=== PATIENT | male | born 1955 | race Asian ===

== ENCOUNTER 2022-10-08 09:20 | Emergency (ER) | payer OTHER ==
[~2022-10-08] VITALS: Ht 170.2 cm; Wt 95.4 kg
[2022-10-08] MEDS ORDERED: cloNIDine HCL 0.1 MG TAB PO ONE (10:00)
[2022-10-08] MEDS ORDERED: HYDROcodone-ACET 5/325MG TAB PO ONE (10:00)
[2022-10-08 10:18] VITALS: RESP 18; O2SAT 94
[2022-10-08 13:26] VITALS: BP 165/98; PULSE 74
[2022-10-08] MEDS ORDERED: CLON0.2T PO (14:04)
[2022-10-08] MEDS ORDERED: TRAM50TA2 PO (14:04)
== END 2022-10-08 14:43 | disposition home or self-care (01) ==
LOC: ER 09:20 → EDBD 09:20 → ER 14:42
DX: S42.032A Displaced fracture of lateral end of left clavicle, initial encounter for closed fracture (principal); I10 Essential (primary) hypertension; V49.9XXA Car occupant (driver) (passenger) injured in unspecified traffic accident, initial encounter; Y93.89 Activity, other specified; Y92.89 Other specified places as the place of occurrence of the external cause; Y99.8 Other external cause status
CPT/HCPCS: 71101; 73030; 73200

== ENCOUNTER 2022-10-19 08:06 | Emergency (ER) | payer OTHER ==
[~2022-10-19] VITALS: Ht 172.7 cm; Wt 88.0 kg
[~2022-10-19 08:06] MED LIST: CLON0.2T PO; TRAM50TA2 PO
[2022-10-19 08:54] LABS: Basophils # (auto) 0.1 10 ^3/uL (0-0.2); Basophils % (auto) 0.6 % (0.0-2.0); Eosinophils # (auto) 0.2 10 ^3/uL (0-0.8); Eosinophils % (auto) 1.6 % (0.0-7.0); Hematocrit 42.5 % (41.0-53.0); Hemoglobin 14.5 g/dL (13.5-17.5); Lymphocytes # (auto) 1.8 10 ^3/uL (0.4-5.4); Lymphocytes % (auto) 18.3 % (10.0-50.0); Mean Corpuscular Hemoglobin 29.2 pg (28.0-32.0); Mean Corpuscular Volume 85.7 fL (80.0-100.0); Monocytes # (auto) 0.6 10 ^3/uL (0-1.3); Monocytes % (auto) 6.6 % (0.0-12.0); Neutrophils # (auto) 7.1 10 ^3/uL (1.6-8.6); Neutrophils % (auto) 72.9 % (37.0-80.0); Nucleated Red Blood Cells % 0.1 %; Red Blood Cells 4.96 10^6/uL (4.5-5.90); White Blood Cell 9.7 10^3/uL (4.4-10.8)
[2022-10-19 09:36] LABS: Albumin 4.2 g/dL (3.4-5.0); Calcium 8.9 mg/dL (8.5-10.1)
[2022-10-19 09:40] LABS: BUN/Creatinine Ratio 16.2 (10.0-20.0); Bilirubin, Total 0.8 mg/dL (0.2-1.0)
[2022-10-19] MEDS ORDERED: cloNIDine HCL 0.1 MG TAB PO ONE (11:00)
[2022-10-19] MEDS ORDERED: cloNIDine 0.2 mg/24hr 7DAY PATCH TD ONE (11:00)
[2022-10-19 11:48] VITALS: TEMP 98.2; O2SAT 96
[2022-10-19] MEDS ORDERED: MORPHINE SULFATE INJ 2 MG/ml SYRG IM ONE (12:15)
[2022-10-19] MEDS ORDERED: ONDANSETRON ODT 4 MG TAB PO ONE (12:15)
[2022-10-19 12:53] VITALS: PULSE 64; RESP 18
[2022-10-19 12:54] LABS: Urine Bacteria FEW /hpf (None Seen); Urine Blood Negative /uL (Negative); Urine Hyaline Cast FEW /lpf (0 - 2); Urine Mucus FEW (None Seen); Urine Specific Gravity 1.024 (1.001-1.035); Urine WBC 3 /hpf (0 - 3)
[2022-10-19 13:00] VITALS: BP 140/91
[2022-10-19] MEDS ORDERED: TRAM50TA2 PO (13:54)
[2022-10-19] MEDS ORDERED: CYCL-839 PO (14:14)
[2022-10-19] MEDS ORDERED: LISI10TA34 PO (14:14)
[2022-10-19] MEDS ORDERED: MELO-335 PO (14:14)
== END 2022-10-19 14:31 | disposition home or self-care (01) ==
LOC: EDBD 08:06 → ER 08:06
DX: S42.032D Displaced fracture of lateral end of left clavicle, subsequent encounter for fracture with routine healing (principal); I10 Essential (primary) hypertension; Z76.0 Encounter for issue of repeat prescription; Z79.899 Other long term (current) drug therapy; V89.2XXD Person injured in unspecified motor-vehicle accident, traffic, subsequent encounter
CPT/HCPCS: 36415; 71045; 80053; 81001; 84484; 85025; 93005; 96372; 99285; J2270; Q0162